=== PATIENT | male | born 1970 | race Caucasian/White ===

== ENCOUNTER 2018-10-27 09:25 | Day surgery (SDC) | payer OTHER ==
--- NOTE | 2018-10-25 10:11 | PREOPHP ---
DATE OF ADMISSION: 10/27/2018 HISTORY OF PRESENT ILLNESS: This 48-year-old patient is admitted for elective cataract surgery of e left eye. The patient has a history of decreasing vision in the left eye for the past 6 months. N o prior history of eye disease or injury. The patient does have a history of noninsulin dependent di abetes and hypercholesterolemia. CURRENT MEDICATIONS INCLUDE: 1. Metformin. 2. Atorvastatin. ALLERGIES: THERE ARE NO KNOWN ALLERGIES. PHYSICAL EXAMINATION: Visual acuity with best correction is 20/25 in the right eye and 20/50 in the left eye. Slit lamp examination reveals a posterior subcapsular cataract located centrally in the le ft eye. Applanation tonometry is 13 mmHg in both eyes. Examination of the retina reveals the presen ce of some fine exudates in the macular region. DIAGNOSIS: Posterior subcapsular cataract, left eye. PLAN: Cataract extraction with lens implant, left eye. The risks and alternatives to the surgery dowd ve been discussed with the patient as well as the hope for improved visual acuity leading to greater ability to perform activities of daily living. The patient understands this and agrees to proceed wi surgery. Dictated By: ALYSSA VEE/RAHUL Conf#: [id number] DID#: [id number] CC: ALYSSA ZAMAN MD;*EndCC*
[~2018-10-27] VITALS: Ht 182.9 cm; Wt 87.8 kg
[2018-10-27] VITALS (12 sets, daily range): BP systolic 130–155; BP diastolic 79–94; PULSE 77–106; RESP 12–19; Ht 182.9 cm; Wt 87.8 kg
[~2018-10-27 09:25] MED LIST: ACET500C5 PO; BACL10TA; CYCLOPENTOLATE/PHENYLEPH 2 ML OPH OPER SCH; DICLOFENAC 0.1% 2.5 ML OPH OPER SCH; HYDR-3613; LIDOCAINE 2% (SDV) 5 ML INJ ONE; MOXIFLOXACIN 0.5% 3 ML OPH OPER SCH; SOD CHLORIDE 0.9% 1,000 ML IV SCH; TROPICAMIDE 1% 15 ML OPH OPER SCH
[2018-10-27] MEDS ORDERED: LIDOCAINE 2% (SDV) 5 ML INJ ONE (09:27)
[2018-10-27] MEDS ORDERED: METF100010 PO (10:09)
[2018-10-27] MEDS ORDERED: ATOR10TA65 PO (10:10)
[2018-10-27] MEDS ORDERED: CARBACHOL 0.01% 1.5 ML OPH INJ ONE (11:32)
[2018-10-27] MEDS ORDERED: CEFAZOLIN 1 GM INJ ONE (11:32)
[2018-10-27] MEDS ORDERED: EPINEPHrine 1 MG INJ ONE (11:32)
[2018-10-27] MEDS ORDERED: GENTAMICIN 80 MG INJ ONE (11:32)
[2018-10-27] MEDS ORDERED: BUPIVACAINE 0.75% (MPF) 10 ML INJ ONE (11:32)
--- NOTE | 2018-10-27 11:38 | PREAC ---
Date/Time of Note Date/Time of Note DATE: 10/27/18 TIME: 11:37 Anesthesia Eval and Record Evaluation Time Pre-Procedure Interview DATE: 10/27/18 TIME: 11:37 Age 48 Sex male NPO: 8 hrs Preoperative diagnosis LEFT EYE CATARACT Planned procedure LEFT CATARACT EXTRACTION Past Medical History Past Medical History: Includes Cardio: HTN, Dyslipidemia Endo: Diabetes Surgery & Anesthesia Issues No known issue Meds Anticoagulation: No Beta Prabhu within 24 hr: No Reason Beta Prabhu not given: Pt. not on B-Prabhu Reported Medications Atorvastatin Calcium (Atorvastatin Calcium) 10 Mg Tablet, 10 MG PO QHS, #30 TAB 10/27/18 Metformin Hcl* (Metformin Hcl*) 1,000 Mg Tablet, 1000 MG PO WITH BREAKFAST DINNE, #60 TAB 10/27/18 Discontinued Reported Medications Hydrocodone Bit-Acetaminophen (Hydrocodone Bit-Acetaminophen) 1 Each Tablet 10/15/13 Baclofen* (Lioresal*) 10 Mg Tab 10/15/13 Discontinued Scripts Acetaminophen* (Tylophen*) 500 Mg Capsule, 500 MG PO Q6H PRN for PAIN, #20 TAB Prov:DEVAN NAVARRETE DO 10/29/15 Current Medications Diclofenac Sodium (Voltaren 0.1%) 1 drop Q5 MIN X 3 OPER Last administered on 10/27/18at 10:20; Admin Dose 1 DROP; Start 10/27/18 at 09:00 Tropicamide (Mydriacyl 1%) 1 drop Q5 MIN X3 OPER Last administered on 10/27/18at 10:20; Admin Dose 1 DROP; Start 10/27/18 at 09:00 Moxifloxacin HCl (Vigamox) 1 drop Q5 MIN X 3 OPER Last administered on 10/27/18 10:20; Admin Dose 1 DROP; Start 10/27/18 at 09:00 Cyclopentolate/ Phenylephrine (Cyclomydril Oph 2 ml) 1 drop Q5 MIN X 3 OPER Last administered on 10/27/18 10:19; Admin Dose 1 DROP; Start 10/27/18 at 09:00 Sodium Chloride 1,000 ml @ 25 mls/hr Q24H IV Last administered on 10/27/18 10:20; Admin Dose 25 MLS/HR; Start 10/27/18 at 09:00 Influenza Virus Vaccine Quadrival (Fluzone) 0.5 ml ONCE ONCE IM* ; Start 10/28/18 at 10:00; Stop 10/28/18 at 10:01 Meds reviewed: Yes Allergies Coded Allergies: No Known Allergy (Unverified , 10/15/13) Allergies Reviewed: Yes Labs/Studies Labs Reviewed: Reviewed by anesthesiologist test: N/A Pre-procedure Exam Last vitals Vital Signs Date Temp Pulse Resp B/P (MAP) Pulse Ox O2 O2 Flow FiO2 Time Delivery Rate 10/27/18 96.6 106 18 130/82 97 Room Air 09:33 (98) Airway: Adequate mouth opening, Adequate thyromental dist Mallampati: Mallampati II Teeth: Normal Lung: Normal Heart: Normal ASA Physical Status ASA physical status: 2 Emergency: None Planned Anesthetic General/MAC: MAC Pre-operative Attestations Prior to commencing anesthesia and surgery, the patient was re-evaluated, there was verification of: *The patient's identity *The results of appropriate recent lab work and preoperative vital signs *The above evaluation not changing prior to induction *Anesthetic plan, risk benefits, alternative and complications discussed with patient/family; questions answered; patient/family understands, accepts and wishes to proceed. Glen Valdes M.D. Oct 27, 2018 11:38
[2018-10-27] MEDS ORDERED: HYDROmorphONE 1 MG/5 ML IV SYRINGE IV PRN ×3 (12:00)
[2018-10-27] MEDS ORDERED: LABETALOL HCL 20MG INJ IV PRN (12:00)
[2018-10-27] MEDS ORDERED: DIPHENHYDRAMINE 50 MG INJ IV PRN (12:00)
[2018-10-27] MEDS ORDERED: EPHEDrine SULFATE 50 MG/5 ML SYG IV PRN (12:00)
[2018-10-27] MEDS ORDERED: IPRATROPIUM (NEB) 0.5 MG/2.5 ML AMP HHN PRN (12:00)
[2018-10-27] MEDS ORDERED: MEPERIDINE 25 MG INJ IV PRN (12:00)
[2018-10-27] MEDS ORDERED: MIDAZOLAM 1 MG/ML 2 ML INJ IV PRN (12:00)
[2018-10-27] MEDS ORDERED: ONDANSETRON 4 MG INJ IV PRN (12:00)
[2018-10-27] MEDS ORDERED: hydrALAzine 20 MG INJ IV PRN (12:00)
[2018-10-27] MEDS ORDERED: OXYCODONE/ACETAMINOPHEN (5/325) TAB PO PRN ×2 (12:00)
[2018-10-27] MEDS ORDERED: TRIMETHOBENZAMIDE 100 MG/ML VIAL IM PRN (12:00)
[2018-10-27] MEDS ORDERED: FENTAnyl 50 MCG/ML VIAL IV PRN ×3 (12:00)
[2018-10-27] MEDS ORDERED: ALBUTEROL 0.083% (NEB) 2.5 MG/3 ML AMP HHN PRN (12:00)
[2018-10-27] MEDS ORDERED: NA HYALURONATE/CHONDROITIN 0.5 ML SYG LEFT EYE ONE (12:05)
--- NOTE | 2018-10-27 12:15 | NUR ---
NURSING RR RECEIVED PT FROM OR NOT IN ANY DISTRESS PT S/P LEFT CATARACT SURGERY .DSG TO LEFT EYE CLAN AND DRY .IV TO LEFT FA G20 NEEDLE WITH LR INFUSING WELL .
--- NOTE | 2018-10-27 12:18 | PAC ---
Date/Time of Note Date/Time of Note DATE: 10/27/18 TIME: 12:18 Post-Anesthesia Notes Post-Anesthesia Note Last documented vital signs Vital Signs Date Temp Pulse Resp B/P (MAP) Pulse Ox O2 O2 Flow FiO2 Time Delivery Rate 10/27/18 96.6 106 18 130/82 97 Room Air 09:33 (98) Activity: WNL Respiratory function: WNL Cardiovascular function: WNL Mental status: Baseline Pain reasonably controlled: Yes Hydration appropriate: Yes Nausea/Vomiting absent: Yes MARII CHAVIS Oct 27, 2018 12:18
--- NOTE | 2018-10-27 13:02 | NUR ---
TRANSFER PT TRANSFER TO [facility] IN STABLE CONDITION REPORT GIVEN TO RN CARE PROVIDED PER [facility].
--- NOTE | 2018-10-27 13:08 | OPR ---
DATE OF OPERATION: 10/27/2018 PREOPERATIVE DIAGNOSIS: Posterior subcapsular cataract, left eye. POSTOPERATIVE DIAGNOSIS: Posterior subcapsular cataract, left eye. OPERATION PERFORMED: Cataract extraction with lens implant, left eye. SURGEON: Alyssa Singer MD ANESTHESIA: Dr. Valdes ANESTHESIA: Local standby. OPERATION: Phacoemulsification with posterior chamber intraocular lens implant, left eye. PROCEDURE: The patient was brought to the operating room and placed on the table with an IV in place and the patient attached to an air sampling and monitoring. Oxygen was given via face mask. After some intravenous sedation was administered, local anesthesia was given using Xylocaine 2% with epinephrine, mixed with Marcaine 0.5%. This was given in a lid block and retrobulbar injection. The p atient was then prepped and draped in the usual sterile manner. A wire lid speculum was inserted between the lids of the left eye. A Superblade was used to enter the anterior chamber at the corneoscleral limbus at the 10:30 o'clock position. A separate incision was made using a 3.0-mm keratome which entered the corneoscleral junction at the 12 o'clock position. Thr ough this 3-mm opening, an irrigating cystotome was introduced into the anterior chamber. The chamber was filled with Viscoat and an anterior capsulotomy was performed. Balanced salt solution was then u sed for hydrodissection of the lens. A phacoemulsification handpiece was then brought into the field and introduced into the anterior chamber. The lens nucleus was emulsified using a deep groove and cr acking the nucleus into quadrants. Following this, each quadrant was aspirated and emulsified at the pupillary margin. After this was completed, the irrigation/aspiration handpiece was brought to the field, introduced in to the posterior chamber, and the lens cortical material was removed. When this was completed, additi onal Viscoat was injected into the anterior and posterior chambers. The 3-mm opening had its internal lips enlarged, and then the posterior chamber intraocular lens benja uring 18.0 diopters ([employer] Model LI61AO) was then injected into the posterior c hamber using the lens injector system. After the leading haptic was introduced into the capsular bag and the lens optic was present in the center of the eye, the injector was removed and the trailing dowd ptic was grasped with non-toothed forceps and introduced into the capsular fold superiorly. A Sinskey hook was then used to rotate the intraocular lens so that the lips were oriented in the horizontal m eridian. One 10-0 nylon suture was placed across the wound. Prior to tying, the irrigation/aspiration handpiece was reintroduced into the anterior chamber to rem ove the Viscoat. Miochol was instilled to constrict the pupil, and then the 10-0 nylon suture was tie d. The ends were cut short and then the knot was buried. Then, 0.5 mL of dexamethasone and 0.5 mL of Ancef were injected into the sub-Tenon space in the infer ior fornix. Ciloxan drops were then placed on the surface of the eye. The speculum was removed and a patch was applied. The patient then left the operating room in satisfactory condition. Dictated By: ALYSSA VEE/RAHUL Conf#: [id number] DID#: [id number]
--- NOTE | 2018-10-27 13:40 | NUR ---
PT. STABLE, TOLERATING PO FLUIDS AND SOLIDS, VOIDED X 2, HOME CARE INSTRUCTIONS WAS GIVEN, SEND HOME IN STABLE CONDITION.
== END 2018-10-27 13:40 | disposition home or self-care (01) ==
LOC: SDS 09:25
PROVIDERS: ATTEND Ophthalmology
DX: H25.042 Posterior subcapsular polar age-related cataract, left eye (principal); E78.5 Hyperlipidemia, unspecified; E11.9 Type 2 diabetes mellitus without complications; I10 Essential (primary) hypertension
CPT/HCPCS: 66984; 82962; J0171; J0690; J1170; V2632; J1580